=== PATIENT | female | born 1990 | race Caucasian/White ===

== ENCOUNTER → 2016-07-13 | Outpatient (CLI) | payer OTHER ==
--- NOTE | 2016-07-13 20:08 | Diagnostic Imaging Report ---
PROCEDURE: MRI left upper extremity without contrast. TECHNIQUE: Multiplanar, multisequence non contrast-enhanced MRI of the left upper extremity was accomplished. INDICATION: Left shoulder pain for one and a half years There is tendinosis of the supraspinatus tendon with a partial tear at its insertion. No full-thickness tear of the rotator cuff tendon is seen. The labrum is intact. There is no effusion. There is no muscle mass or edema. There is no bony abnormality. IMPRESSION: There is tendinosis and partial tear of the supraspinatus tendon. Dictated by: Dictated on workstation # [id number]
== END ==
LOC: RAD 17:52
PROVIDERS: ATTEND Nurse Practitioner Family
DX: M25.512 Pain in left shoulder (principal)
CPT/HCPCS: 73221

== ENCOUNTER → 2017-01-06 | Outpatient (CLI) | payer OTHER ==
--- NOTE | 2017-01-06 15:32 | Diagnostic Imaging Report ---
PROCEDURE: MR imaging cervical spine without contrast. TECHNIQUE: Multiplanar, multisequence MR imaging of the cervical spine was performed without contrast. INDICATION: Left shoulder and neck pain. FINDINGS: There is straightening of the cervical lordotic curvature. The alignment of the posterior spinal line is satisfactory. The vertebral body heights are preserved. Disc heights are generally preserved with disc desiccation seen at all levels. The bone marrow demonstrates no significant abnormality. The spinal cord has normal caliber, contour and signal. The foramen magnum and upper cervical canal are widely patent. C2/C3: There is no disc herniation. No spinal canal or foraminal stenosis. C3/C4: No disc herniation. No spinal canal or foraminal stenosis. C4/C5: There is a minimal disc spur complex centrally with no spinal canal or foraminal stenosis. C5/C6: There is a minimal disc spur complex with no spinal canal or foraminal stenosis. C6/C7: There is a right paracentral disc spur complex with no significant spinal canal stenosis. No foraminal narrowing. C7/T1: No disc herniation. No spinal canal or foraminal stenosis. There is a right perineural cyst seen in the right neuroforamen measuring 5 mm. IMPRESSION: Mild disc degenerative changes in the mid to lower cervical spine with no significant spinal canal or foraminal stenosis at any level. Dictated by: Dictated on workstation # [id number]
== END ==
LOC: RAD 13:41
PROVIDERS: ATTEND Orthopaedic Surgery
DX: M54.12 Radiculopathy, cervical region (principal); M25.512 Pain in left shoulder
CPT/HCPCS: 72141